=== PATIENT | male | born 1975 | race Caucasian/White ===

== ENCOUNTER 2023-06-06 12:54 | Emergency (ER) | payer OTHER ==
[~2023-06-06] VITALS: Ht 188 cm; Wt 115.9 kg
[~2023-06-06 12:54] MED LIST: ASPI-1265 PO; ATOR80TA PO; CARV3.122 PO; EPLE25TA4 PO; FAMO20TA8 PO; MECL-159 PO; NITR0.4T51 SL; SACU1TAB PO; TICA90TA PO
[2023-06-06 13:11] VITALS: TEMP 98
[2023-06-06 13:17] LABS: BASOPHILS # (AUTO) 0.1 X10'3 (0-0.2); BASOPHILS % (AUTO) 0.9 % (0-1); EOSINOPHILS # (AUTO) 0.1 X10'3 (0-0.9); EOSINOPHILS % (AUTO) 1.9 % (0-6); HEMOGLOBIN 14.3 g/dl (14.0-17.9); LYMPHOCYTES # (AUTO) 1.2 X10'3 (1.1-4.8); LYMPHOCYTES % (AUTO) 19.5 % (21-51); MEAN CORPUSCULAR HEMOGLOBIN 32.4 PG (27.0-31.0); MEAN CORPUSCULAR HGB CONC 34.9 g/dL (33.0-36.5); MEAN CORPUSCULAR VOLUME 92.6 FL (78-98); MEAN PLATELET VOLUME 7.4 FL (7.4-10.4); MONOCYTES # (AUTO) 0.6 X10'3 (0-0.9); MONOCYTES % (AUTO) 9.7 % (2-12); NEUTROPHILS # (AUTO) 4.1 X10'3 (1.8-7.7); PLATELET COUNT 242 X10'3 (140-440); RED BLOOD COUNT 4.43 X10'6 (4.70-6.10); RED CELL DISTRIBUTION WIDTH 12.6 % (11.5-14.5); WHITE BLOOD COUNT 6.1 X10'3 (4.5-11.0)
[2023-06-06] MEDS ORDERED: nitroGLYCERIN 0.4mg SUBLingual tab SL PRN (13:20)
[2023-06-06 13:30] LABS: ALANINE AMINOTRANSFERASE 60 U/L (12-78); ALBUMIN 3.5 G/DL (3.4-5.0); ALBUMIN/GLOBULIN RATIO 0.9 (1.1-1.5); ALKALINE PHOSPHATASE 77 IU/L (46-116); ANION GAP 7 (8-16); ASPARTATE AMINO TRANSFERASE 24 U/L (10-37); BILIRUBIN,TOTAL 0.5 MG/DL (0.1-1.0); BLOOD UREA NITROGEN 15 MG/DL (7-18); BUN/CREATININE RATIO 15.2 (10.0-20.0); CALCIUM 8.9 MG/DL (8.5-10.1); CHLORIDE 103 MMOL/L (99-107); CREATININE 0.99 MG/DL (0.60-1.10); GLUCOSE 99 MG/DL (70-104); SODIUM 139 MMOL/L (135-145); TOTAL CARBON DIOXIDE 29.5 MMOL/L (24-32); TOTAL PROTEIN 7.3 G/DL (6.4-8.2); eGFR 81 ML/MIN
--- NOTE | 2023-06-06 16:54 | NUR ---
[facility].
[2023-06-06 17:16] VITALS: BP 132/80; PULSE 64; RESP 11; O2SAT 99
== END 2023-06-06 18:14 | disposition home or self-care (01) ==
LOC: ER 12:55
DX: R07.9 Chest pain, unspecified (principal); R77.8 Other specified abnormalities of plasma proteins; M79.602 Pain in left arm; I11.9 Hypertensive heart disease without heart failure; E78.00 Pure hypercholesterolemia, unspecified; K21.9 Gastro-esophageal reflux disease without esophagitis; Z79.899 Other long term (current) drug therapy; Z79.1 Long term (current) use of non-steroidal anti-inflammatories (NSAID); Z79.2 Long term (current) use of antibiotics
CPT/HCPCS: 36415; 71045; 80053; 83880; 84484; 85025; 93005; 99285

== ENCOUNTER 2023-07-05 13:09 | Emergency (ER) | payer OTHER ==
[~2023-07-05] VITALS: Ht 188 cm; Wt 114.1 kg
[2023-07-05 13:30] LABS: BASOPHILS % (AUTO) 0.5 % (0-1); EOSINOPHILS # (AUTO) 0.2 X10'3 (0-0.9); EOSINOPHILS % (AUTO) 2.9 % (0-6); HEMATOCRIT 42.8 % (42.0-52.0); HEMOGLOBIN 14.9 g/dl (14.0-17.9); LYMPHOCYTES % (AUTO) 18.7 % (21-51); MEAN CORPUSCULAR HEMOGLOBIN 32.1 PG (27.0-31.0); MEAN CORPUSCULAR HGB CONC 34.8 g/dL (33.0-36.5); MEAN CORPUSCULAR VOLUME 92.3 FL (78-98); MEAN PLATELET VOLUME 7.7 FL (7.4-10.4); MONOCYTES # (AUTO) 0.5 X10'3 (0-0.9); MONOCYTES % (AUTO) 9.7 % (2-12); NEUTROPHILS # (AUTO) 3.7 X10'3 (1.8-7.7); NEUTROPHILS % (AUTO) 68.2 % (42-75); PLATELET COUNT 189 X10'3 (140-440); RED BLOOD COUNT 4.63 X10'6 (4.70-6.10); RED CELL DISTRIBUTION WIDTH 13.4 % (11.5-14.5); WHITE BLOOD COUNT 5.4 X10'3 (4.5-11.0)
[2023-07-05 13:52] LABS: ALANINE AMINOTRANSFERASE 59 U/L (12-78); ALBUMIN 3.9 G/DL (3.4-5.0); ALBUMIN/GLOBULIN RATIO 1.1 (1.1-1.5); ALKALINE PHOSPHATASE 96 IU/L (46-116); ANION GAP 8 (8-16); ASPARTATE AMINO TRANSFERASE 24 U/L (10-37); BILIRUBIN,TOTAL 0.6 MG/DL (0.1-1.0); BLOOD UREA NITROGEN 14 MG/DL (7-18); BUN/CREATININE RATIO 15.1 (10.0-20.0); CALCIUM 8.8 MG/DL (8.5-10.1); CHLORIDE 105 MMOL/L (99-107); CREATININE 0.93 MG/DL (0.60-1.10); GLUCOSE 105 MG/DL (70-104); POTASSIUM 3.8 MMOL/L (3.5-5.1); SODIUM 140 MMOL/L (135-145); TOTAL CARBON DIOXIDE 27.5 MMOL/L (24-32); TOTAL PROTEIN 7.3 G/DL (6.4-8.2); eCRCL 114 ML/MIN; eGFR 87 ML/MIN
[2023-07-05 13:56] LABS: PRO BRAIN NATRIURETIC PEPTIDE 150 PG/ML (0-125)
[2023-07-05] MEDS ORDERED: normal saline 1000ML IV soln IVB ONE (14:35)
[2023-07-05] MEDS ORDERED: LORazepam 2 mg/ml vial IV ONE (14:35)
[2023-07-05] MEDS ORDERED: LORazepam 1 MG tablet PO ONE (15:00)
[2023-07-05] MEDS ORDERED: iohexol 350MG/ML 100ml bottle IV ONE (16:29)
[2023-07-05 17:28] VITALS: TEMP 96.4
[2023-07-05] MEDS ORDERED: acetaminophen 325mg tablet PO ONE (17:40)
[2023-07-05] MEDS ORDERED: ketorolac tromethamine 15mg/ml inj. IV ONE (17:40)
[2023-07-05 18:54] VITALS: BP 141/85; PULSE 76; RESP 14; O2SAT 95
== END 2023-07-05 19:04 | disposition home or self-care (01) ==
LOC: ER 13:10
DX: R07.9 Chest pain, unspecified (principal); E78.00 Pure hypercholesterolemia, unspecified; I11.0 Hypertensive heart disease with heart failure; K21.9 Gastro-esophageal reflux disease without esophagitis; Z79.899 Other long term (current) drug therapy
CPT/HCPCS: 36415; 71045; 71275; 74174; 80053; 83880; 84484; 85025; 93005; 96361; 96374; 99285; J1885; J3490; J7030; Q9967

== ENCOUNTER 2023-08-16 12:56 | Emergency (ER) | payer OTHER ==
[~2023-08-16] VITALS: Ht 188 cm; Wt 107.6 kg
[~2023-08-16 12:56] MED LIST changes: -ASPI-1265 PO; +ASPI-1397 PO; +BISA-78 PO; -CARV3.122 PO; +CARV6.253 PO; +DOCU-148 PO; -FAMO20TA8 PO; -MECL-159 PO; +MULT-227 PO; +RANO500T6 PO; +[UNRECOGNIZED DRUG - OTHER] PO
[2023-08-16 13:03] VITALS: BP 132/80; PULSE 78; RESP 16; TEMP 98.5; O2SAT 97
[2023-08-16 14:15] LABS: BASOPHILS % (AUTO) 0.6 % (0-1); EOSINOPHILS # (AUTO) 0.1 X10'3 (0-0.9); HEMATOCRIT 40.9 % (42.0-52.0); HEMOGLOBIN 14.4 g/dl (14.0-17.9); LYMPHOCYTES # (AUTO) 0.9 X10'3 (1.1-4.8); LYMPHOCYTES % (AUTO) 14.1 % (21-51); MEAN CORPUSCULAR HEMOGLOBIN 32.7 PG (27.0-31.0); MEAN CORPUSCULAR HGB CONC 35.2 g/dL (33.0-36.5); MEAN CORPUSCULAR VOLUME 92.8 FL (78-98); MEAN PLATELET VOLUME 7.1 FL (7.4-10.4); MONOCYTES # (AUTO) 0.5 X10'3 (0-0.9); MONOCYTES % (AUTO) 7.5 % (2-12); NEUTROPHILS # (AUTO) 4.8 X10'3 (1.8-7.7); NEUTROPHILS % (AUTO) 75.8 % (42-75); PLATELET COUNT 224 X10'3 (140-440); RED BLOOD COUNT 4.41 X10'6 (4.70-6.10); WHITE BLOOD COUNT 6.3 X10'3 (4.5-11.0)
[2023-08-16 14:40] LABS: ALANINE AMINOTRANSFERASE 66 U/L (12-78); ALBUMIN 3.7 G/DL (3.4-5.0); ALBUMIN/GLOBULIN RATIO 1.1 (1.1-1.5); ALKALINE PHOSPHATASE 90 IU/L (46-116); ANION GAP 5 (8-16); BILIRUBIN,TOTAL 0.6 MG/DL (0.1-1.0); BLOOD UREA NITROGEN 12 MG/DL (7-18); CALCIUM 8.8 MG/DL (8.5-10.1); CHLORIDE 104 MMOL/L (99-107); CREATININE 0.92 MG/DL (0.60-1.10); POTASSIUM 3.7 MMOL/L (3.5-5.1); PRO BRAIN NATRIURETIC PEPTIDE 69 PG/ML (0-125); SODIUM 138 MMOL/L (135-145); TOTAL CARBON DIOXIDE 28.8 MMOL/L (24-32); TOTAL PROTEIN 7.2 G/DL (6.4-8.2); eCRCL 114 ML/MIN; eGFR 88 ML/MIN
[2023-08-16 14:52] LABS: ASPARTATE AMINO TRANSFERASE 30 U/L (10-37)
[2023-08-16 15:05] LABS: GLUCOSE 137 MG/DL (70-104)
--- NOTE | 2023-08-16 15:42 | NUR ---
PT DID NOT WANT TO WAIT FOR DOCTOR, LEFT WITHOUT BEING SEEN
== END 2023-08-16 15:42 | disposition left against medical advice (07) ==
LOC: ER 12:57
DX: R07.89 Other chest pain (principal); R94.31 Abnormal electrocardiogram [ECG] [EKG]; Z53.21 Procedure and treatment not carried out due to patient leaving prior to being seen by health care provider
CPT/HCPCS: 36415; 71045; 80053; 83880; 84484; 85025; 93005; 99281

== ENCOUNTER 2023-12-16 17:51 | Inpatient (IN) | payer OTHER ==
[~2023-12-16] VITALS: Ht 188 cm; Wt 119.1 kg
[2023-12-16] MEDS: heparin 25,000 UNIT/250ml bag 250 ML IV PRN (18:19)
[2023-12-16] MEDS: nitroGLYCERIN-Tridil 50MG/D5W 250 ML IV PRN (18:20)
[2023-12-16] MEDS: fentaNYL/PF 50MCG/1 ML 2ML syringe IV ONE (18:28)
[2023-12-16 20:54] LABS: APTT 34 SECONDS (22-32); INR 1.1 INR; PROTHROMBIN TIME 11.9 SECONDS (9.0-12.0)
[2023-12-16] MEDS ORDERED: morphine 2 MG/ML inj. syringe IV PRN (20:55)
[2023-12-16] MEDS ORDERED: magnesium 4gm in 100ml NS 100 ML IV PRN (20:55)
[2023-12-16] MEDS ORDERED: ondansetron/PF 4mg/2ml inj IV PRN (20:55)
[2023-12-16] MEDS ORDERED: magnesium 2GM in 50ml NS 50 ML IV PRN (20:55)
[2023-12-16] MEDS ORDERED: mag hydrox/Alum hydrox/simeth 30ml oral suspension PO PRN (20:55)
[2023-12-16] MEDS ORDERED: potassium Cl 20 mEq SR tablet PO PRN ×2 (20:55)
[2023-12-16] MEDS ORDERED: potassium Cl 40MEQ/1/2NS 520ml 520 ML IV PRN (20:55)
[2023-12-16] MEDS ORDERED: magnesium hydroxide 30ml (MOM) UD suspension PO PRN (20:55)
[2023-12-16] MEDS ORDERED: HYDROcodone/acetaminophen 10/325mg tab PO PRN (20:55)
[2023-12-16 21:04] LABS: PRO BRAIN NATRIURETIC PEPTIDE 90 PG/ML (0-125)
[2023-12-16] MEDS: HYDROcodone/acetaminophen 5mg/325mg tablet PO PRN (22:02)
[2023-12-17] VITALS (14 sets, daily range): BP systolic 94–130; BP diastolic 54–83; PULSE 50–75; RESP 10–17; TEMP 97.6–98; O2SAT 96–99
[2023-12-17] MEDS ORDERED: CLOP75TA33 PO (00:56)
[2023-12-17] MEDS ORDERED: AMLO2.5T2 PO (00:57)
[2023-12-17] MEDS: morphine 2 MG/ML inj. syringe IV PRN (01:02)
[2023-12-17] MEDS: nitroGLYCERIN-Tridil 50MG/D5W 250 ML IV SCH (01:04)
[2023-12-17] MEDS ORDERED: aminophylline 250mg/10ml inj. IV PRN (02:35)
[2023-12-17] MEDS ORDERED: metoprolol tartrate 1mg/ml inj IV PRN (02:35)
[2023-12-17] MEDS ORDERED: nitroGLYCERIN 0.4mg SUBLingual tab SL PRN ×2 (02:35→08:00)
[2023-12-17] MEDS ORDERED: regadenoson 0.4mg/5ml syringe IV PRN (02:35)
[2023-12-17 07:18] LABS: BASOPHILS % (AUTO) 0.6 % (0-1); EOSINOPHILS # (AUTO) 0.1 X10'3 (0-0.9); EOSINOPHILS % (AUTO) 2.3 % (0-6); HEMATOCRIT 38.3 % (42.0-52.0); HEMOGLOBIN 13.3 g/dl (14.0-17.9); LYMPHOCYTES # (AUTO) 0.9 X10'3 (1.1-4.8); LYMPHOCYTES % (AUTO) 16.5 % (21-51); MEAN CORPUSCULAR HEMOGLOBIN 32.9 PG (27.0-31.0); MEAN CORPUSCULAR HGB CONC 34.8 g/dL (33.0-36.5); MEAN CORPUSCULAR VOLUME 94.5 FL (78-98); MEAN PLATELET VOLUME 7.5 FL (7.4-10.4); MONOCYTES # (AUTO) 0.6 X10'3 (0-0.9); MONOCYTES % (AUTO) 10.5 % (2-12); NEUTROPHILS # (AUTO) 3.8 X10'3 (1.8-7.7); NEUTROPHILS % (AUTO) 70.1 % (42-75); PLATELET COUNT 157 X10'3 (140-440); RED BLOOD COUNT 4.06 X10'6 (4.70-6.10); RED CELL DISTRIBUTION WIDTH 12.9 % (11.5-14.5); WHITE BLOOD COUNT 5.4 X10'3 (4.5-11.0)
[2023-12-17 07:51] LABS: ALANINE AMINOTRANSFERASE 55 U/L (12-78); ALBUMIN 3.3 G/DL (3.4-5.0); ALBUMIN/GLOBULIN RATIO 1.1 (1.1-1.5); ALKALINE PHOSPHATASE 62 IU/L (46-116); ANION GAP 7 (8-16); ASPARTATE AMINO TRANSFERASE 22 U/L (10-37); BILIRUBIN,TOTAL 0.7 MG/DL (0.1-1.0); BLOOD UREA NITROGEN 13 MG/DL (7-18); BUN/CREATININE RATIO 14.4 (10.0-20.0); CALCIUM 8.2 MG/DL (8.5-10.1); CHLORIDE 111 MMOL/L (99-107); CHOL/HDL RATIO 3.8 (0.00-4.99); CHOLESTEROL 125 MG/DL (0-200); GLUCOSE 96 MG/DL (70-104); HDL CHOLESTEROL 33 MG/DL (35-60); LDL CHOLESTEROL 65 MG/DL (50-100); SODIUM 144 MMOL/L (135-145); TOTAL CARBON DIOXIDE 25.8 MMOL/L (24-32); TOTAL PROTEIN 6.4 G/DL (6.4-8.2); TRIGLYCERIDES 159 MG/DL (20-135); eCRCL 117 ML/MIN; eGFR 90 ML/MIN
[2023-12-17] MEDS: [UNRECOGNIZED DRUG - OTHER] PO SCH (08:00)
[2023-12-17] MEDS: K and/or MAG REPLACEMENT MC SCH (08:00)
[2023-12-17] MEDS: sacubitril/valsartan 24mg-26mg tablet PO SCH (08:00)
[2023-12-17 08:04] LABS: HEMOGLOBIN A1C 5.4 % (4.5-6.2)
[2023-12-17] MEDS: normal saline 1000ML IV soln IVB ONE (08:21)
[2023-12-17] MEDS: docusate sod 100mg capsule PO SCH (08:49)
[2023-12-17] MEDS: acetaminophen 325mg tablet PO PRN (08:49)
[2023-12-17] MEDS: aspirin 81mg, enteric-coated 1 TAB TABLET.DR PO SCH (08:50)
[2023-12-17] MEDS: clopidogrel 75mg tablet PO SCH (08:50)
[2023-12-17] MEDS: multivitamins, therapeutics tablet PO SCH (08:50)
[2023-12-17] MEDS: amLODIPine 5mg tablet PO SCH (08:51)
[2023-12-17] MEDS: carvedilol 6.25mg tablet PO SCH ×2 (08:51→11:57)
[2023-12-17] MEDS ORDERED: CARV6.253 PO (08:59)
[2023-12-17] MEDS ORDERED: CARV-50 PO (09:01)
[2023-12-17] MEDS: normal saline 1000ml 1,000 ML IV ONE (10:00)
[2023-12-17] MEDS ORDERED: isosorbide mononitrate 30mg tab.SR.24H PO SCH ×2 (10:25→13:03)
[2023-12-17] MEDS ORDERED: ISOS30TA84 PO (11:53)
[2023-12-17] MEDS ORDERED: carvedilol 6.25mg tablet PO SCH (13:04)
[2023-12-17] MEDS ORDERED: atorvastatin 20mg tablet PO SCH (21:00)
[2023-12-17] MEDS ORDERED: bisacodyl 5mg tablet.DR PO SCH (21:00)
== END 2023-12-17 14:23 | disposition home or self-care (01) | DRG 303 ==
LOC: ER 17:52 → ED HOLD 21:00 → UNDOADMIN 21:00 → EDBEDREQ 21:18 → PCU 3S 12-17 00:06 → ED HOLD 12-17 00:06 → PCU 3S 12-17 05:09 → UNDOADMIN 12-17 05:09 → ED HOLD 12-17 05:21 → PCU 3S 12-17 05:21
PROVIDERS: ADMIT Family Medicine; ATTEND Internal Medicine
DX: I25.110 Atherosclerotic heart disease of native coronary artery with unstable angina pectoris (principal); I50.22 Chronic systolic (congestive) heart failure; I11.0 Hypertensive heart disease with heart failure; G47.33 Obstructive sleep apnea (adult) (pediatric); K21.9 Gastro-esophageal reflux disease without esophagitis; E78.00 Pure hypercholesterolemia, unspecified; Z79.899 Other long term (current) drug therapy; Z79.82 Long term (current) use of aspirin; Z88.7 Allergy status to serum and vaccine; Z95.5 Presence of coronary angioplasty implant and graft; Z79.01 Long term (current) use of anticoagulants; Z87.891 Personal history of nicotine dependence; Z95.1 Presence of aortocoronary bypass graft
CPT/HCPCS: 36415; 71045; 80053; 80061; 83036; 83735; 83880; 84484; 85025; 85610; 85730; 87081; 93005; 93306; 99285; A9500; G0378; J1644; J2270; J3010; J3490; J7030; J7040